=== PATIENT | female | born 1970 | race Caucasian/White ===

== ENCOUNTER → 2017-06-19 | Outpatient (REF) | payer OTHER ==
[2017-06-19 20:46] LABS: PERCENT SATURATION 81.5 % (13.2-45.0)
== END ==
LOC: M LABDRAWC 10:27
PROVIDERS: ATTEND Family Medicine
DX: R53.83 Other fatigue (principal)

== ENCOUNTER → 2017-09-11 | Outpatient (CLI) | payer BC, OTHER | LOC: M RAD 09:23 | DX: Z01.419 Encounter for gynecological examination (general) (routine) without abnormal findings (principal) | CPT/HCPCS: 77067 ==

== ENCOUNTER → 2018-02-06 | Outpatient (REF) | payer OTHER ==
[2018-02-06 11:49] LABS: VITAMIN B12 LEVEL 296 PG/ML (247-911)
[2018-02-06 12:06] LABS: ALBUMIN 3.7 GM/DL (3.2-5.2); ALBUMIN/GLOBULIN RATIO 1.19 (1.00-1.93); ALKALINE PHOSPHATASE 70 U/L (45-117); ALT/SGPT 22 U/L (12-78); ANION GAP 5 MEQ/L (8-16); AST/SGOT 19 U/L (7-37); BILIRUBIN,TOTAL 0.4 MG/DL (0.2-1.0); BLOOD UREA NITROGEN 9 MG/DL (7-18); C REACTIVE PROTEIN QUANTITATIV < 0.30 MG/DL (0.00-0.30); CALCIUM LEVEL 8.2 MG/DL (8.5-10.1); CARBON DIOXIDE LEVEL 29 MEQ/L (21-32); CHLORIDE LEVEL 108 MEQ/L (98-107); CHOLESTEROL LEVEL 181 MG/DL (<200); CHOLESTEROL RISK RATIO 3.067 (<5); CREATININE FOR GFR 0.71 MG/DL (0.55-1.30); GLOMERULAR FILTRATION RATE > 60.0 (>58); GLUCOSE, FASTING 87 MG/DL (70-100); HDL CHOLESTEROL 59 MG/DL (>40); LDL CHOLESTEROL 113.4 MG/DL (<100); NON-HDL-C 122 MG/DL; POTASSIUM SERUM 4.2 MEQ/L (3.5-5.1); SODIUM LEVEL 142 MEQ/L (136-145); TOTAL PROTEIN 6.8 GM/DL (6.4-8.2); TRIGLYCERIDES LEVEL 43 MG/DL (<150)
[2018-02-07 14:17] LABS: INSULIN LEVEL 4.4 uIU/mL (2.6-24.9)
== END ==
LOC: M SFHCCLAY 07:34
DX: E55.9 Vitamin D deficiency, unspecified (principal); E78.2 Mixed hyperlipidemia; K21.9 Gastro-esophageal reflux disease without esophagitis; D69.6 Thrombocytopenia, unspecified

== ENCOUNTER → 2018-06-04 | Outpatient (CLI) | payer BC, OTHER ==
[~2018-06-04] MED LIST: PROHANCE 279.3MG/ML 15ML VIAL (A9576) As Ordered
== END ==
LOC: M RAD 08:31
DX: R92.8 Other abnormal and inconclusive findings on diagnostic imaging of breast (principal)
CPT/HCPCS: A9576

== ENCOUNTER → 2018-09-13 | Outpatient (REF) | payer OTHER ==
[2018-09-13 16:52] LABS: FREE T3 2.5 PG/ML (2.2-4.0); FREE T4 1.01 NG/DL (0.76-1.46); THYROXINE (T4) 10.6 UG/DL (4.5-12.0)
[2018-09-14 10:38] LABS: THYROID PEROXIDASE ANTIBODY < 28.0 U/ML (<60.0)
== END ==
LOC: M SFHCCLAY 11:18
PROVIDERS: ATTEND Family Medicine
DX: R53.83 Other fatigue (principal); E07.9 Disorder of thyroid, unspecified; E55.9 Vitamin D deficiency, unspecified

== ENCOUNTER → 2019-03-14 | Outpatient (REF) | payer OTHER ==
[~2019-03-14] MED LIST changes: +B COTAB3 PO; +CURCPOW XX; +GLUT1POW XX; +MAGN500T6 PO; -PROHANCE 279.3MG/ML 15ML VIAL (A9576) As Ordered; +SERT25TA88 PO; +VITA50LO PO
[2019-03-15 12:25] LABS: ALT/SGPT 26 U/L (12-78); BILIRUBIN,TOTAL 0.4 MG/DL (0.2-1.0); BLOOD UREA NITROGEN 11 MG/DL (7-18); CALCIUM LEVEL 8.6 MG/DL (8.5-10.1); CARBON DIOXIDE LEVEL 28 MEQ/L (21-32); CHLORIDE LEVEL 105 MEQ/L (98-107); CHOLESTEROL LEVEL 197 MG/DL (<200); CHOLESTEROL RISK RATIO 3.283 (<5); GLOMERULAR FILTRATION RATE > 60.0 (>58); GLUCOSE, FASTING 81 MG/DL (70-100); HDL CHOLESTEROL 60 MG/DL (>40); LDL CHOLESTEROL 118 MG/DL (<100); NON-HDL-C 137 MG/DL; POTASSIUM SERUM 4.1 MEQ/L (3.5-5.1); SODIUM LEVEL 139 MEQ/L (136-145); TOTAL PROTEIN 7.2 GM/DL (6.4-8.2); TRIGLYCERIDES LEVEL 93 MG/DL (<150)
[2019-03-15 12:32] LABS: FOLATE 19.4 NG/ML (>5.4); VITAMIN B12 LEVEL 427 PG/ML (247-911)
== END ==
LOC: M SFHCCLAY 13:48
PROVIDERS: ATTEND Family Medicine
DX: Z13.21 Encounter for screening for nutritional disorder (principal); E78.2 Mixed hyperlipidemia; R53.83 Other fatigue

== ENCOUNTER 2020-04-11 23:01 | Emergency (ER) | payer BC, OTHER ==
[~2020-04-11 23:01] MED LIST changes: +SERT25TA21 PO; -SERT25TA88 PO; +testosterone TOP
[2020-04-11] MEDS ORDERED: ASPIRIN 325 MG TAB ONE (23:33)
[2020-04-12] MEDS ORDERED: ISOVUE-370 76% 100ML VIAL As Ordered ONE (00:42)
--- NOTE | 2020-05-15 17:11 | ECGEPIP ---
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
--- NOTE | 2020-05-15 17:13 | ECGEPIP ---
[facility] - ED Test Date: 2020-04-11 Pat Name: JOVANI KIDD Department: Room: - Gender: Female Rail Equipment Operator: adrienne : 1970 Requested By: CHRISTIANO Melton Order Number: [id number] Reading MD: Vanessa Bertrand Measurements Intervals [place] Rate: 80 P: 54 HI: 148 QRS: 42 QRSD: 85 T: 26 QT: 367 QTc: 425 Interpretive Statements SINUS RHYTHM LOW QRS VOLTAGE IN PRECORDIAL LEADS MINIMAL ST DEPRESSION BORDERLINE ECG SEE SCANNED DOWNTIME REPORT.
[2020-05-28 09:47] LABS: INR 0.88; PARTIAL THROMBOPLASTIN TIME 28.5 SECONDS (24.2-38.5); PROTHROMBIN TIME 12.1 SECONDS (12.5-14.3)
[2020-05-28 18:37] LABS: BASO % 0.2 % (0.0-1.0); EOS % 0.1 % (0.0-3.0); HEMATOCRIT 39.7 % (36.0-47.0); HEMOGLOBIN 13.5 g/dl (12.0-15.5); LYMPH # 1.7 10^3/uL (1.5-5.0); LYMPH % 21.4 % (24.0-44.0); MEAN CORPUSCULAR HEMOGLOBIN 30.3 pg (27.0-33.0); MONO # 0.8 10^3/uL (0.0-0.8); MONO % 9.3 % (0.0-5.0); NEUTROPHILS # 5.6 10^3/uL (1.5-8.5); NEUTROPHILS % 68.6 % (36.0-66.0); PLATELET COUNT, AUTOMATED 215 10^3/uL (150-450); RED BLOOD COUNT 4.46 10^6/uL (4.00-5.40); WHITE BLOOD COUNT 8.1 10^3/uL (4.0-10.0)
[2020-06-30 20:37] LABS: ALBUMIN 3.8 GM/DL (3.2-5.2); ALT/SGPT 25 U/L (12-78); BILIRUBIN,DIRECT < 0.1 MG/DL (0.0-0.2); BILIRUBIN,TOTAL 0.3 MG/DL (0.2-1.0); BLOOD UREA NITROGEN 10 MG/DL (7-18); CALCIUM LEVEL 8.9 MG/DL (8.5-10.1); CARBON DIOXIDE LEVEL 26 MEQ/L (21-32); CHLORIDE LEVEL 110 MEQ/L (98-107); CREATININE FOR GFR 0.76 MG/DL (0.55-1.30); FREE T4 0.98 NG/DL (0.76-1.46); GLOMERULAR FILTRATION RATE > 60.0 (>58); GLUCOSE, FASTING 113 MG/DL (70-100); LIPASE 160 U/L (73-393); PHOSPHORUS LEVEL 0.9 MG/DL (2.5-4.9); POTASSIUM SERUM 3.9 MEQ/L (3.5-5.1); SODIUM LEVEL 141 MEQ/L (136-145); TOTAL PROTEIN 7.3 GM/DL (6.4-8.2); TROPONIN I < 0.02 NG/ML (< 0.10)
== END 2020-04-12 03:51 | disposition left against medical advice (07) ==
LOC: M ED 23:01
DX: R07.89 Other chest pain (principal); F41.9 Anxiety disorder, unspecified; Z79.899 Other long term (current) drug therapy

== ENCOUNTER → 2020-06-11 | Outpatient (REF) | payer OTHER ==
[2020-06-11 12:30] LABS: CHOLESTEROL RISK RATIO 3.976 (<5)
== END ==
LOC: M LABDRAWC 11:23
PROVIDERS: ATTEND Internal Medicine Cardiovascular Disease
DX: R06.00 Dyspnea, unspecified (principal); Z71.3 Dietary counseling and surveillance; I49.1 Atrial premature depolarization

== ENCOUNTER → 2020-07-14 | Outpatient (CLI) | payer BC, OTHER ==
--- NOTE | 2020-07-14 09:00 | REP ---
INDICATION: CHEST PAIN/FILE ROOM. COMPARISON: Chest x-ray 04/12/2020, CT 10/28/2015 TECHNIQUE: Noncontrast CT with coronal and sagittal reconstructions. FINDINGS: The lung mederos are well inflated. No pulmonary nodule, pleural effusion, calcified pleural plaque, acute infiltrate parenchymal mass. The heart is not enlarged. There is no pericardial thickening or effusion. The aorta is without aneurysm or dissection. No pathologic sized mediastinal, hilar, axillary or supraclavicular nodes. Bone windows show sternum, manubrium, clavicles, AC joints, scapulae and humeral heads or wall intact for those portions included. Spine is unremarkable. The upper abdomen demonstrates solid organs without focal lesion the gallbladder shows no calcified stone or mass. Stomach collapse but without mass visualized small bowel loops are unremarkable. IMPRESSION: 1. Negative CT chest. No acute finding. <Electronically signed by Yunier Cordero > 07/14/20 0800
== END ==
LOC: M RAD 08:06
PROVIDERS: ATTEND Family Medicine
DX: R07.9 Chest pain, unspecified (principal)

== ENCOUNTER → 2020-09-11 | Outpatient (REF) | payer OTHER ==
[2020-09-11 16:15] LABS: BASO % 0.4 % (0.0-1.0); EOS % 0.8 % (0.0-3.0); HEMATOCRIT 40.6 % (36.0-47.0); LYMPH # 1.4 10^3/uL (1.5-5.0); LYMPH % 28.5 % (24.0-44.0); MEAN CORPUSCULAR HEMOGLOBIN 29.5 pg (27.0-33.0); MEAN CORPUSCULAR VOLUME 92.3 fl (80.0-96.0); MONO # 0.5 10^3/uL (0.0-0.8); MONO % 9.6 % (0.0-5.0); NEUTROPHILS % 60.5 % (36.0-66.0); PLATELET COUNT, AUTOMATED 185 10^3/uL (150-450); WHITE BLOOD COUNT 4.9 10^3/uL (4.0-10.0)
[2020-09-11 16:52] LABS: ALT/SGPT 17 U/L (12-78); BILIRUBIN,TOTAL 0.5 MG/DL (0.2-1.0); BLOOD UREA NITROGEN 11 MG/DL (7-18); CALCIUM LEVEL 8.8 MG/DL (8.5-10.1); CARBON DIOXIDE LEVEL 31 MEQ/L (21-32); CHLORIDE LEVEL 109 MEQ/L (98-107); CHOLESTEROL LEVEL 207 MG/DL (<200); CHOLESTEROL RISK RATIO 4.404 (<5); CREATININE FOR GFR 0.73 MG/DL (0.55-1.30); GLOMERULAR FILTRATION RATE > 60.0 (>51); GLUCOSE, FASTING 75 MG/DL (70-100); HDL CHOLESTEROL 47 MG/DL (>40); LDL CHOLESTEROL 139 MG/DL (<100); NON-HDL-C 160 MG/DL; SODIUM LEVEL 142 MEQ/L (136-145); TOTAL PROTEIN 7.1 GM/DL (6.4-8.2); TRIGLYCERIDES LEVEL 107 MG/DL (<150)
[2020-09-11 16:53] LABS: VITAMIN B12 LEVEL 646 PG/ML
[2020-09-11 16:54] LABS: FOLATE 17.9 NG/ML
[2020-09-14 14:07] LABS: VITAMIN D 1,25 DIHYDROXY 42.1 pg/mL (19.9-79.3)
== END ==
LOC: M SFHCCLAY 09:40
PROVIDERS: ATTEND Family Medicine
DX: E55.9 Vitamin D deficiency, unspecified (principal); E78.2 Mixed hyperlipidemia; E07.9 Disorder of thyroid, unspecified; Z20.822 Contact with and (suspected) exposure to COVID-19; D69.6 Thrombocytopenia, unspecified; Z13.21 Encounter for screening for nutritional disorder

== ENCOUNTER → 2020-09-18 | Outpatient (CLI) | payer SELFPAY | LOC: M LABSMTC 10:56 | PROVIDERS: ATTEND Pediatrics | DX: Z20.822 Contact with and (suspected) exposure to COVID-19 (principal) ==

== ENCOUNTER → 2021-07-12 | Outpatient (REF) | payer OTHER ==
[2021-07-12 12:30] LABS: PROTHROMBIN TIME 13.6 SECONDS (12.7-14.5)
== END ==
LOC: M LABDRAWC 11:23
PROVIDERS: ATTEND Internal Medicine Cardiovascular Disease
DX: E78.2 Mixed hyperlipidemia (principal)

== ENCOUNTER → 2021-07-19 | Outpatient (REF) | payer OTHER ==
[2021-07-19 12:34] LABS: CHOLESTEROL RISK RATIO 3.53 (<5)
== END ==
LOC: M LABDRAWC 11:05
PROVIDERS: ATTEND Internal Medicine Cardiovascular Disease
DX: E78.2 Mixed hyperlipidemia (principal); Z71.82 Exercise counseling; Z71.3 Dietary counseling and surveillance

== ENCOUNTER → 2021-09-16 | Outpatient (REF) | payer OTHER ==
[2021-09-16 16:13] LABS: BASO % 0.3 % (0.0-1.0); EOS # 0.1 10^3/uL (0.0-0.5); EOS % 1.1 % (0.0-3.0); HEMATOCRIT 38.4 % (36.0-47.0); HEMOGLOBIN 12.4 g/dl (12.0-15.5); LYMPH # 1.9 10^3/uL (1.5-5.0); LYMPH % 29.2 % (24.0-44.0); MEAN CORPUSCULAR HEMOGLOBIN 29.7 pg (27.0-33.0); MEAN CORPUSCULAR HGB CONC 32.3 g/dl (32.0-36.5); MEAN CORPUSCULAR VOLUME 91.9 fl (80.0-96.0); MONO # 0.6 10^3/uL (0.0-0.8); NEUTROPHILS # 3.8 10^3/uL (1.5-8.5); NEUTROPHILS % 58.9 % (36.0-66.0); PLATELET COUNT, AUTOMATED 223 10^3/uL (150-450); RED BLOOD COUNT 4.18 10^6/uL (4.00-5.40); WHITE BLOOD COUNT 6.4 10^3/uL (4.0-10.0)
[2021-09-16 16:38] LABS: ALBUMIN 3.6 GM/DL (3.2-5.2); ALT/SGPT 24 U/L (12-78); BILIRUBIN,TOTAL 0.2 MG/DL (0.2-1.0); BLOOD UREA NITROGEN 9 MG/DL (7-18); CALCIUM LEVEL 9.1 MG/DL (8.5-10.1); CARBON DIOXIDE LEVEL 30 MEQ/L (21-32); CHLORIDE LEVEL 106 MEQ/L (98-107); CREATININE FOR GFR 0.59 MG/DL (0.55-1.30); FOLATE 11.8 NG/ML (>5.4); FREE T4 0.95 NG/DL (0.76-1.46); GLOMERULAR FILTRATION RATE > 60.0 (>51); GLUCOSE, FASTING 77 MG/DL (70-100); POTASSIUM SERUM 4.1 MEQ/L (3.5-5.1); SODIUM LEVEL 139 MEQ/L (136-145); TOTAL PROTEIN 6.9 GM/DL (6.4-8.2); TOTAL T3 116.2 NG/DL (60.0-181.0)
[2021-09-17 09:42] LABS: VITAMIN B12 LEVEL 1429 PG/ML (247-911)
== END ==
LOC: M SFHCCLAY 09:53
PROVIDERS: ATTEND Family Medicine
DX: E78.2 Mixed hyperlipidemia (principal); E07.9 Disorder of thyroid, unspecified; D69.6 Thrombocytopenia, unspecified; E55.9 Vitamin D deficiency, unspecified

== ENCOUNTER → 2022-02-07 | Outpatient (REF) | payer OTHER ==
[2022-02-07 16:25] LABS: BASO % 0.4 % (0.0-1.0); EOS % 0.8 % (0.0-3.0); HEMATOCRIT 40.5 % (36.0-47.0); HEMOGLOBIN 13.2 g/dl (12.0-15.5); LYMPH # 1.7 10^3/uL (1.5-5.0); LYMPH % 32.4 % (24.0-44.0); MEAN CORPUSCULAR HGB CONC 32.6 g/dl (32.0-36.5); MONO # 0.5 10^3/uL (0.0-0.8); MONO % 9.6 % (2.0-8.0); NEUTROPHILS # 2.9 10^3/uL (1.5-8.5); NEUTROPHILS % 56.6 % (36.0-66.0); PLATELET COUNT, AUTOMATED 180 10^3/uL (150-450); WHITE BLOOD COUNT 5.1 10^3/uL (4.0-10.0)
== END ==
LOC: M SFHCCLAY 10:07
PROVIDERS: ATTEND Physician Assistant
DX: R42 Dizziness and giddiness (principal)

== ENCOUNTER → 2022-07-26 | Outpatient (REF) | payer OTHER ==
[2022-07-26 17:31] LABS: BASO # 0.1 10^3/uL (0.0-0.2); BASO % 0.8 % (0.0-1.0); EOS # 0.1 10^3/uL (0.0-0.5); EOS % 0.8 % (0.0-3.0); HEMATOCRIT 35.8 % (36.0-47.0); HEMOGLOBIN 11.5 g/dl (12.0-15.5); LYMPH # 0.8 10^3/uL (1.5-5.0); LYMPH % 13.3 % (24.0-44.0); MEAN CORPUSCULAR HEMOGLOBIN 29.7 pg (27.0-33.0); MEAN CORPUSCULAR HGB CONC 32.1 g/dl (32.0-36.5); MEAN CORPUSCULAR VOLUME 92.5 fl (80.0-96.0); MONO # 0.8 10^3/uL (0.0-0.8); MONO % 13.3 % (2.0-8.0); NEUTROPHILS # 4.2 10^3/uL (1.5-8.5); NEUTROPHILS % 67.3 % (36.0-66.0); PLATELET COUNT, AUTOMATED 165 10^3/uL (150-450); RED BLOOD COUNT 3.87 10^6/uL (4.00-5.40); WHITE BLOOD COUNT 6.2 10^3/uL (4.0-10.0)
== END ==
LOC: M LABDRAWC 16:40
PROVIDERS: ATTEND Psychiatry & Neurology Neurology
DX: C71.3 Malignant neoplasm of parietal lobe (principal)

== ENCOUNTER → 2022-08-31 | Outpatient (REF) | payer OTHER ==
[2022-08-31 12:17] LABS: BASO # 0.1 10^3/uL (0.0-0.2); BASO % 1.2 % (0.0-1.0); EOS % 18.7 % (0.0-3.0); HEMATOCRIT 41.1 % (36.0-47.0); HEMOGLOBIN 13.2 g/dl (12.0-15.5); LYMPH # 0.9 10^3/uL (1.5-5.0); LYMPH % 17.8 % (24.0-44.0); MEAN CORPUSCULAR HEMOGLOBIN 28.6 pg (27.0-33.0); MEAN CORPUSCULAR HGB CONC 32.1 g/dl (32.0-36.5); MEAN CORPUSCULAR VOLUME 89.2 fl (80.0-96.0); MONO # 0.6 10^3/uL (0.0-0.8); MONO % 12.6 % (2.0-8.0); NEUTROPHILS # 2.5 10^3/uL (1.5-8.5); NEUTROPHILS % 48.3 % (36.0-66.0); PLATELET COUNT, AUTOMATED 223 10^3/uL (150-450); RED BLOOD COUNT 4.61 10^6/uL (4.00-5.40); WHITE BLOOD COUNT 5.1 10^3/uL (4.0-10.0)
[2022-08-31 12:50] LABS: ALBUMIN 3.1 G/DL (3.2-5.2); ALKALINE PHOSPHATASE 66 U/L (46-116); ALT/SGPT 71 U/L (7.0-40); AST/SGOT 60 U/L (<34); BILIRUBIN,TOTAL 0.5 MG/DL (0.3-1.2); BLOOD UREA NITROGEN < 5 MG/DL (9-23); CALCIUM LEVEL 8.8 MG/DL (8.5-10.1); CARBON DIOXIDE LEVEL 27 MMOL/L (20-31); CHLORIDE LEVEL 105 MMOL/L (98-107); GLOMERULAR FILTRATION RATE > 60.0 (>51); GLUCOSE, FASTING 88 MG/DL (60-100); POTASSIUM SERUM 4.3 MMOL/L (3.5-5.1); SODIUM LEVEL 140 MMOL/L (136-145); TOTAL PROTEIN 6.1 G/DL (5.7-8.2)
== END ==
LOC: M LABDRAWC 11:22
DX: C71.9 Malignant neoplasm of brain, unspecified (principal)

== ENCOUNTER → 2022-09-06 | Outpatient (REF) | payer OTHER ==
[2022-09-06 17:35] LABS: BASO % 0.6 % (0.0-1.0); EOS # 0.4 10^3/uL (0.0-0.5); EOS % 8.8 % (0.0-3.0); HEMATOCRIT 40.8 % (36.0-47.0); HEMOGLOBIN 13.3 g/dl (12.0-15.5); LYMPH % 19.2 % (24.0-44.0); MEAN CORPUSCULAR HEMOGLOBIN 28.9 pg (27.0-33.0); MEAN CORPUSCULAR HGB CONC 32.6 g/dl (32.0-36.5); MEAN CORPUSCULAR VOLUME 88.5 fl (80.0-96.0); MONO # 0.8 10^3/uL (0.0-0.8); MONO % 16.2 % (2.0-8.0); NEUTROPHILS # 2.7 10^3/uL (1.5-8.5); NEUTROPHILS % 54.8 % (36.0-66.0); PLATELET COUNT, AUTOMATED 201 10^3/uL (150-450); RED BLOOD COUNT 4.61 10^6/uL (4.00-5.40)
[2022-09-06 17:52] LABS: ALBUMIN 3.3 G/DL (3.2-5.2); ALKALINE PHOSPHATASE 65 U/L (46-116); ALT/SGPT 67 U/L (7.0-40); AST/SGOT 51 U/L (<34); BILIRUBIN,TOTAL 0.4 MG/DL (0.3-1.2); BLOOD UREA NITROGEN 7 MG/DL (9-23); CALCIUM LEVEL 9.1 MG/DL (8.5-10.1); CARBON DIOXIDE LEVEL 24 MMOL/L (20-31); CHLORIDE LEVEL 105 MMOL/L (98-107); CREATININE FOR GFR 0.69 MG/DL (0.55-1.30); GLOMERULAR FILTRATION RATE > 60.0 (>51); GLUCOSE, FASTING 88 MG/DL (60-100); POTASSIUM SERUM 4.6 MMOL/L (3.5-5.1); SODIUM LEVEL 141 MMOL/L (136-145); TOTAL PROTEIN 6.3 G/DL (5.7-8.2)
== END ==
LOC: M LABDRAWC 16:58
DX: C71.9 Malignant neoplasm of brain, unspecified (principal)

== ENCOUNTER → 2022-09-21 | Outpatient (REF) | payer OTHER ==
[2022-09-21 17:37] LABS: BASO % 0.8 % (0.0-1.0); EOS # 0.3 10^3/uL (0.0-0.5); EOS % 4.9 % (0.0-3.0); HEMATOCRIT 39.4 % (36.0-47.0); HEMOGLOBIN 13.1 g/dl (12.0-15.5); LYMPH # 1.3 10^3/uL (1.5-5.0); LYMPH % 24.9 % (24.0-44.0); MEAN CORPUSCULAR HEMOGLOBIN 29.4 pg (27.0-33.0); MEAN CORPUSCULAR HGB CONC 33.2 g/dl (32.0-36.5); MEAN CORPUSCULAR VOLUME 88.5 fl (80.0-96.0); MONO # 0.8 10^3/uL (0.0-0.8); MONO % 14.7 % (2.0-8.0); NEUTROPHILS # 2.9 10^3/uL (1.5-8.5); NEUTROPHILS % 54.1 % (36.0-66.0); PLATELET COUNT, AUTOMATED 176 10^3/uL (150-450); RED BLOOD COUNT 4.45 10^6/uL (4.00-5.40); WHITE BLOOD COUNT 5.3 10^3/uL (4.0-10.0)
[2022-09-21 17:54] LABS: ALBUMIN 3.4 G/DL (3.2-5.2); ALKALINE PHOSPHATASE 72 U/L (46-116); ALT/SGPT 49 U/L (7.0-40); AST/SGOT 40 U/L (<34); BILIRUBIN,TOTAL 0.4 MG/DL (0.3-1.2); BLOOD UREA NITROGEN 10 MG/DL (9-23); CALCIUM LEVEL 8.8 MG/DL (8.5-10.1); CARBON DIOXIDE LEVEL 26 MMOL/L (20-31); CHLORIDE LEVEL 104 MMOL/L (98-107); CREATININE FOR GFR 0.63 MG/DL (0.55-1.30); GLOMERULAR FILTRATION RATE > 60.0 (>51); GLUCOSE, FASTING 92 MG/DL (60-100); SODIUM LEVEL 138 MMOL/L (136-145); TOTAL PROTEIN 6.5 G/DL (5.7-8.2)
== END ==
LOC: M LABDRAWC 16:39
DX: C71.9 Malignant neoplasm of brain, unspecified (principal)

== ENCOUNTER → 2022-10-06 | Outpatient (REF) | payer OTHER ==
[2022-10-06 11:53] LABS: BASO % 0.5 % (0.0-1.0); EOS # 0.1 10^3/uL (0.0-0.5); EOS % 1.3 % (0.0-3.0); HEMATOCRIT 40.1 % (36.0-47.0); HEMOGLOBIN 13.1 g/dl (12.0-15.5); LYMPH # 1.3 10^3/uL (1.5-5.0); LYMPH % 22.4 % (24.0-44.0); MEAN CORPUSCULAR HGB CONC 32.7 g/dl (32.0-36.5); MEAN CORPUSCULAR VOLUME 88.9 fl (80.0-96.0); MONO # 0.6 10^3/uL (0.0-0.8); MONO % 10.6 % (2.0-8.0); NEUTROPHILS # 3.8 10^3/uL (1.5-8.5); NEUTROPHILS % 64.7 % (36.0-66.0); PLATELET COUNT, AUTOMATED 251 10^3/uL (150-450); RED BLOOD COUNT 4.51 10^6/uL (4.00-5.40); WHITE BLOOD COUNT 5.9 10^3/uL (4.0-10.0)
[2022-10-06 12:27] LABS: ALBUMIN 3.4 G/DL (3.2-5.2); ALKALINE PHOSPHATASE 80 U/L (46-116); ALT/SGPT 54 U/L (7.0-40); AST/SGOT 36 U/L (<34); BILIRUBIN,TOTAL 0.4 MG/DL (0.3-1.2); BLOOD UREA NITROGEN 9 MG/DL (9-23); CALCIUM LEVEL 8.8 MG/DL (8.5-10.1); CARBON DIOXIDE LEVEL 25 MMOL/L (20-31); CHLORIDE LEVEL 106 MMOL/L (98-107); CREATININE FOR GFR 0.56 MG/DL (0.55-1.30); GLOMERULAR FILTRATION RATE > 60.0 (>51); GLUCOSE, FASTING 113 MG/DL (60-100); POTASSIUM SERUM 3.8 MMOL/L (3.5-5.1); SODIUM LEVEL 140 MMOL/L (136-145); TOTAL PROTEIN 6.6 G/DL (5.7-8.2)
== END ==
LOC: M LABDRAWC 11:15
PROVIDERS: ATTEND Internal Medicine Hospice and Palliative Medicine
DX: C71.9 Malignant neoplasm of brain, unspecified (principal)

== ENCOUNTER → 2022-10-18 | Outpatient (REF) | payer OTHER ==
[2022-10-18 17:42] LABS: BASO % 0.2 % (0.0-1.0); EOS % 0.4 % (0.0-3.0); HEMATOCRIT 37.5 % (36.0-47.0); HEMOGLOBIN 12.1 g/dl (12.0-15.5); LYMPH % 11.8 % (24.0-44.0); MEAN CORPUSCULAR HEMOGLOBIN 29.7 pg (27.0-33.0); MEAN CORPUSCULAR HGB CONC 32.3 g/dl (32.0-36.5); MEAN CORPUSCULAR VOLUME 91.9 fl (80.0-96.0); MONO # 0.5 10^3/uL (0.0-0.8); MONO % 6.5 % (2.0-8.0); NEUTROPHILS # 6.5 10^3/uL (1.5-8.5); NEUTROPHILS % 79.9 % (36.0-66.0); PLATELET COUNT, AUTOMATED 185 10^3/uL (150-450); RED BLOOD COUNT 4.08 10^6/uL (4.00-5.40); WHITE BLOOD COUNT 8.2 10^3/uL (4.0-10.0)
[2022-10-18 18:11] LABS: ALBUMIN 3.1 G/DL (3.2-5.2); ALKALINE PHOSPHATASE 71 U/L (46-116); ALT/SGPT 52 U/L (7.0-40); AST/SGOT 34 U/L (<34); BILIRUBIN,TOTAL 0.3 MG/DL (0.3-1.2); BLOOD UREA NITROGEN 12 MG/DL (9-23); CALCIUM LEVEL 8.7 MG/DL (8.5-10.1); CARBON DIOXIDE LEVEL 26 MMOL/L (20-31); CHLORIDE LEVEL 103 MMOL/L (98-107); CREATININE FOR GFR 0.48 MG/DL (0.55-1.30); GLOMERULAR FILTRATION RATE > 60.0 (>51); GLUCOSE, FASTING 123 MG/DL (60-100); POTASSIUM SERUM 4.3 MMOL/L (3.5-5.1); SODIUM LEVEL 137 MMOL/L (136-145); TOTAL PROTEIN 6.1 G/DL (5.7-8.2)
== END ==
LOC: M LABDRAWC 16:52
PROVIDERS: ATTEND Internal Medicine Hospice and Palliative Medicine
DX: C71.9 Malignant neoplasm of brain, unspecified (principal)

== ENCOUNTER 2022-10-23 07:37 | Observation (INO) | payer BC, OTHER ==
[~2022-10-23] VITALS: Ht 167.6 cm; Wt 84.5 kg
[2022-10-23] MEDS ORDERED: BACTDSTA PO (08:37)
[2022-10-23] MEDS ORDERED: CLON2TAB14 SL (08:37)
[2022-10-23] MEDS ORDERED: FAMO20TA5 PO (08:37)
[2022-10-23] MEDS ORDERED: [UNRECOGNIZED DRUG - CODE] PO (08:37)
[2022-10-23] MEDS ORDERED: TEMO20CA21 PO (08:37)
[2022-10-23] MEDS ORDERED: DEXA1TA PO (08:37)
[2022-10-23] MEDS ORDERED: LEVE750T5 PO (08:37)
[2022-10-23 08:40] LABS: BASO % 0.4 % (0.0-1.0); EOS # 0.1 10^3/uL (0.0-0.5); HEMATOCRIT 40.5 % (36.0-47.0); LYMPH # 1.6 10^3/uL (1.5-5.0); LYMPH % 22.7 % (24.0-44.0); MEAN CORPUSCULAR HEMOGLOBIN 29.1 pg (27.0-33.0); MEAN CORPUSCULAR HGB CONC 32.1 g/dl (32.0-36.5); MEAN CORPUSCULAR VOLUME 90.6 fl (80.0-96.0); MONO # 0.9 10^3/uL (0.0-0.8); MONO % 12.4 % (2.0-8.0); NEUTROPHILS # 4.3 10^3/uL (1.5-8.5); NEUTROPHILS % 61.6 % (36.0-66.0); PLATELET COUNT, AUTOMATED 195 10^3/uL (150-450); RED BLOOD COUNT 4.47 10^6/uL (4.00-5.40)
[2022-10-23 09:36] LABS: ALBUMIN 3.1 G/DL (3.2-5.2); ALKALINE PHOSPHATASE 79 U/L (46-116); ALT/SGPT 57 U/L (7.0-40); AST/SGOT 35 U/L (<34); BILIRUBIN,DIRECT 0.1 MG/DL (<0.4); BILIRUBIN,TOTAL 0.5 MG/DL (0.3-1.2); BLOOD UREA NITROGEN 9 MG/DL (9-23); CALCIUM LEVEL 9.3 MG/DL (8.5-10.1); CARBON DIOXIDE LEVEL 27 MMOL/L (20-31); CHLORIDE LEVEL 104 MMOL/L (98-107); CREATININE FOR GFR 0.52 MG/DL (0.55-1.30); GLOMERULAR FILTRATION RATE > 60.0 (>51); GLUCOSE, FASTING 88 MG/DL (60-100); SODIUM LEVEL 139 MMOL/L (136-145); TOTAL PROTEIN 6.5 G/DL (5.7-8.2)
[2022-10-23] MEDS ORDERED: LACOSAMIDE 50 MG TAB (VIMPAT) PO ONE ×3 (10:00→22:00)
[2022-10-23 11:08] LABS: RSV AMPLIFICATION NEGATIVE (NEGATIVE)
[2022-10-23] MEDS ORDERED: PROHANCE 279.3MG/ML 15ML VIAL As Ordered ONE (11:31)
[2022-10-23] MEDS ORDERED: PROHANCE 279.3MG/ML 5ML VIAL As Ordered ONE (11:31)
[2022-10-23] MEDS ORDERED: ELIQ5TAB PO (15:49)
[2022-10-23] MEDS ORDERED: FAMOTIDINE 20 MG TAB PO PRN (15:55)
[2022-10-23] MEDS ORDERED: ACETAMINOPHEN TAB 650MG DOSE (2X325MG) PO PRN (15:55)
[2022-10-23] MEDS ORDERED: MOM 30ML SUSPENSION UDC PO PRN (15:55)
[2022-10-23] MEDS ORDERED: HOME MED LIST COMPLETE! XX SCH (15:55)
[2022-10-23] MEDS ORDERED: clonazePAM 1 MG TAB PO PRN (16:00)
[2022-10-23 18:30] VITALS: BP 135/67
[2022-10-23 20:00] VITALS: BP 128/64
[2022-10-23] MEDS: APIXABAN 5 MG TAB (ELIQUIS) PO SCH (21:21)
[2022-10-23] MEDS: levETIRAcetam 250MG TABLET (KEPPRA) PO SCH (21:22)
[2022-10-23] MEDS ORDERED: LACOSAMIDE 50 MG TAB (VIMPAT) PO SCH (22:00)
[2022-10-24 04:00] VITALS: BP 126/72
[2022-10-24 05:39] LABS: HEMATOCRIT 39.5 % (36.0-47.0); HEMOGLOBIN 12.8 g/dl (12.0-15.5); MEAN CORPUSCULAR HEMOGLOBIN 29.3 pg (27.0-33.0); MEAN CORPUSCULAR HGB CONC 32.4 g/dl (32.0-36.5); MEAN CORPUSCULAR VOLUME 90.4 fl (80.0-96.0); PLATELET COUNT, AUTOMATED 219 10^3/uL (150-450); RED BLOOD COUNT 4.37 10^6/uL (4.00-5.40); WHITE BLOOD COUNT 8.8 10^3/uL (4.0-10.0)
[2022-10-24 06:06] LABS: ALBUMIN 3.3 G/DL (3.2-5.2); ALKALINE PHOSPHATASE 77 U/L (46-116); ALT/SGPT 61 U/L (7.0-40); AST/SGOT 30 U/L (<34); BILIRUBIN,TOTAL 0.4 MG/DL (0.3-1.2); BLOOD UREA NITROGEN 16 MG/DL (9-23); CALCIUM LEVEL 9.2 MG/DL (8.5-10.1); CARBON DIOXIDE LEVEL 22 MMOL/L (20-31); CHLORIDE LEVEL 106 MMOL/L (98-107); CREATININE FOR GFR 0.42 MG/DL (0.55-1.30); GLOMERULAR FILTRATION RATE > 60.0 (>51); GLUCOSE, FASTING 120 MG/DL (60-100); POTASSIUM SERUM 4.1 MMOL/L (3.5-5.1); SODIUM LEVEL 139 MMOL/L (136-145); TOTAL PROTEIN 6.5 G/DL (5.7-8.2)
[2022-10-24] MEDS ORDERED: VIMP50TA3 PO (08:15)
[2022-10-24] MEDS ORDERED: DEXA4TA PO (08:15)
[2022-10-24 08:50] VITALS: BP 117/69
[2022-10-24] MEDS ORDERED: BACTRIM 160MG/800MG DS TAB PO SCH (09:00)
[2022-10-24] MEDS: levETIRAcetam 250MG TABLET (KEPPRA) PO SCH (09:56)
[2022-10-24] MEDS: APIXABAN 5 MG TAB (ELIQUIS) PO SCH (09:56)
[2022-10-24] MEDS ORDERED: LACOSAMIDE 50 MG TAB (VIMPAT) PO ONE (10:00)
[2022-10-24] MEDS ORDERED: LACOSAMIDE 50 MG TAB (VIMPAT) PO SCH (21:00)
== END 2022-10-24 10:35 | disposition home or self-care (01) ==
LOC: M ED 09:06 → M ED INP 15:54 → M PCU 18:28
PROVIDERS: ADMIT Internal Medicine; ATTEND Internal Medicine
DX: C71.9 Malignant neoplasm of brain, unspecified (principal); G40.89 Other seizures; G93.6 Cerebral edema; E55.9 Vitamin D deficiency, unspecified; F41.9 Anxiety disorder, unspecified; Z79.899 Other long term (current) drug therapy; Z79.01 Long term (current) use of anticoagulants; Z88.8 Allergy status to other drugs, medicaments and biological substances; Z86.711 Personal history of pulmonary embolism
CPT/HCPCS: 36415; 70450; 70553; 80048; 80053; 80076; 80180; 85025; 85027; 87631; 93041; 99285; A9576

== ENCOUNTER 2022-11-06 12:31 | Emergency (ER) | payer BC, OTHER ==
[~2022-11-06] VITALS: Ht 167.6 cm; Wt 72.6 kg
[~2022-11-06 12:31] MED LIST changes: +BACTDSTA PO; +CLON2TAB14 SL; +DEXA1TA PO; +DEXA4TA PO; +ELIQ5TAB PO; +FAMO20TA5 PO; +LEVE750T5 PO; +TEMO20CA21 PO; +VIMP50TA3 PO; +[UNRECOGNIZED DRUG - CODE] PO
[2022-11-06] MEDS ORDERED: SERT25TA21 PO (14:12)
[2022-11-06] MEDS ORDERED: CLOB10TA15 PO (14:12)
[2022-11-06] MEDS ORDERED: LEVE500T5 PO (14:12)
[2022-11-06] MEDS ORDERED: DEXA1TA PO (14:18)
[2022-11-06] MEDS ORDERED: HOME MED LIST COMPLETE! XX SCH (14:20)
[2022-11-06 15:14] LABS: HEMOGLOBIN 14.3 g/dl (12.0-15.5); MEAN CORPUSCULAR HEMOGLOBIN 29.5 pg (27.0-33.0); MEAN CORPUSCULAR HGB CONC 32.5 g/dl (32.0-36.5); MEAN CORPUSCULAR VOLUME 90.7 fl (80.0-96.0); PLATELET COUNT, AUTOMATED 217 10^3/uL (150-450); RED BLOOD COUNT 4.85 10^6/uL (4.00-5.40); WHITE BLOOD COUNT 8.5 10^3/uL (4.0-10.0)
[2022-11-06 15:34] LABS: ETHYL ALCOHOL (ETHANOL) < 0.003 % (0.000-0.010)
[2022-11-06 15:36] LABS: ACETAMINOPHEN LEVEL < 2.0 UG/ML (10.0-20.0); ALBUMIN 3.4 G/DL (3.2-5.2); ALKALINE PHOSPHATASE 76 U/L (46-116); ALT/SGPT 33 U/L (7.0-40); AST/SGOT 20 U/L (<34); BILIRUBIN,DIRECT 0.1 MG/DL (<0.4); BILIRUBIN,TOTAL 0.5 MG/DL (0.3-1.2); BLOOD UREA NITROGEN 14 MG/DL (9-23); CALCIUM LEVEL 9.2 MG/DL (8.5-10.1); CARBON DIOXIDE LEVEL 28 MMOL/L (20-31); CHLORIDE LEVEL 104 MMOL/L (98-107); CREATININE FOR GFR 0.52 MG/DL (0.55-1.30); GLOMERULAR FILTRATION RATE > 60.0 (>51); GLUCOSE, FASTING 97 MG/DL (60-100); POTASSIUM SERUM 4.4 MMOL/L (3.5-5.1); SALICYLATE LEVEL < 3.0 MG/DL (<30); SODIUM LEVEL 140 MMOL/L (136-145); TOTAL PROTEIN 6.8 G/DL (5.7-8.2)
[2022-11-06 15:39] LABS: THYROID STIMULATING HORMONE 0.998 uIU/ML (0.55-4.78)
[2022-11-06 15:40] LABS: HCG, SERUM QUALITATIVE NEGATIVE (NEGATIVE)
[2022-11-06 18:26] LABS: AMPHETAMINES LEVEL URINE NEGATIVE (NEGATIVE); BARBITURATES URINE NEGATIVE (NEGATIVE); BENZODIAZEPINES URINE NEGATIVE (NEGATIVE); CANNABINOIDS URINE NEGATIVE (NEGATIVE); COCAINE METABOLITE URINE NEGATIVE (NEGATIVE); METHADONE URINE NEGATIVE (NEGATIVE); OPIATES URINE NEGATIVE (NEGATIVE); PHENCYCLIDINE URINE NEGATIVE (NEGATIVE)
[2022-11-06] MEDS ORDERED: PILL CUTTER 1 EACH XX PRN (21:20)
[2022-11-06] MEDS: APIXABAN 5 MG TAB (ELIQUIS) PO SCH (21:43)
[2022-11-06] MEDS: levETIRAcetam 250MG TABLET (KEPPRA) PO SCH (21:43)
[2022-11-06] MEDS: SERTRALINE HCL 50 MG TAB PO SCH (21:43)
[2022-11-07] MEDS: APIXABAN 5 MG TAB (ELIQUIS) PO SCH (08:56)
[2022-11-07] MEDS: levETIRAcetam 250MG TABLET (KEPPRA) PO SCH (08:56)
[2022-11-07] MEDS ORDERED: BACTRIM 160MG/800MG DS TAB PO SCH (09:00)
[2022-11-07] MEDS: SERTRALINE HCL 50 MG TAB PO SCH (16:28)
[2022-11-07 19:48] VITALS: BP 137/74
== END 2022-11-07 20:21 | disposition home or self-care (01) ==
LOC: M ED 12:31
DX: R45.851 Suicidal ideations (principal); C71.9 Malignant neoplasm of brain, unspecified; F32.A Depression, unspecified; F41.9 Anxiety disorder, unspecified; Z87.891 Personal history of nicotine dependence; Z88.6 Allergy status to analgesic agent; Z79.01 Long term (current) use of anticoagulants; Z79.810 Long term (current) use of selective estrogen receptor modulators (SERMs); Z79.899 Other long term (current) drug therapy

== ENCOUNTER 2022-11-10 08:02 | Inpatient (IN) | payer BC, OTHER ==
[~2022-11-10] VITALS: Ht 167.6 cm; Wt 86.4 kg
[~2022-11-10 08:02] MED LIST changes: +CLOB10TA15 PO; +LEVE500T5 PO
[2022-11-10] MEDS ORDERED: LORazepam 2 MG/ML 1ML VIAL IV STA (09:42)
[2022-11-10] MEDS ORDERED: levETIRAcetam INJection 1,000 MG in D5W 100 ML IV ONE (09:45)
[2022-11-10 10:11] LABS: BASO % 0.4 % (0.0-1.0); EOS % 0.4 % (0.0-3.0); HEMOGLOBIN 14.1 g/dl (12.0-15.5); LYMPH # 1.5 10^3/uL (1.5-5.0); LYMPH % 18.6 % (24.0-44.0); MEAN CORPUSCULAR HEMOGLOBIN 29.9 pg (27.0-33.0); MEAN CORPUSCULAR HGB CONC 32.8 g/dl (32.0-36.5); MEAN CORPUSCULAR VOLUME 91.3 fl (80.0-96.0); MONO # 0.8 10^3/uL (0.0-0.8); MONO % 9.9 % (2.0-8.0); NEUTROPHILS # 5.8 10^3/uL (1.5-8.5); NEUTROPHILS % 69.9 % (36.0-66.0); PLATELET COUNT, AUTOMATED 209 10^3/uL (150-450); RED BLOOD COUNT 4.71 10^6/uL (4.00-5.40); WHITE BLOOD COUNT 8.3 10^3/uL (4.0-10.0)
[2022-11-10] MEDS ORDERED: CLON0.12 SL (10:11)
[2022-11-10] MEDS ORDERED: HOME MED LIST COMPLETE! XX SCH (10:15)
[2022-11-10 10:27] LABS: INR 0.98; PROTHROMBIN TIME 13.2 SECONDS (12.5-14.5)
[2022-11-10 10:28] LABS: PARTIAL THROMBOPLASTIN TIME 24.6 SECONDS (24.8-34.2)
[2022-11-10 10:30] LABS: ETHYL ALCOHOL (ETHANOL) < 0.003 % (0.000-0.010)
[2022-11-10 10:32] LABS: ACETAMINOPHEN LEVEL < 2.0 UG/ML (10.0-20.0); ALBUMIN 3.4 G/DL (3.2-5.2); ALKALINE PHOSPHATASE 76 U/L (46-116); ALT/SGPT 37 U/L (7.0-40); AST/SGOT 22 U/L (<34); BILIRUBIN,DIRECT 0.2 MG/DL (<0.4); BILIRUBIN,TOTAL 0.6 MG/DL (0.3-1.2); CK-MB VALUE MASS < 1.0 NG/ML (<3.6); SALICYLATE LEVEL < 3.0 MG/DL (<30); TOTAL PROTEIN 6.7 G/DL (5.7-8.2)
[2022-11-10 10:33] LABS: BLOOD UREA NITROGEN 11 MG/DL (9-23); CALCIUM LEVEL 8.7 MG/DL (8.5-10.1); CARBON DIOXIDE LEVEL 28 MMOL/L (20-31); CHLORIDE LEVEL 104 MMOL/L (98-107); CREATININE FOR GFR 0.66 MG/DL (0.55-1.30); GLOMERULAR FILTRATION RATE > 60.0 (>51); GLUCOSE, FASTING 91 MG/DL (60-100); SODIUM LEVEL 141 MMOL/L (136-145)
[2022-11-10 10:35] LABS: THYROID STIMULATING HORMONE 1.442 uIU/ML (0.55-4.78)
[2022-11-10 10:39] LABS: CPK CREATINE PHOSPHOKINASE 33 U/L (34-145); MB/CK RELATIVE INDEX 3.03 (< OR =4)
[2022-11-10 11:20] LABS: RSV AMPLIFICATION NEGATIVE (NEGATIVE)
[2022-11-10] MEDS ORDERED: BACTRIM 160MG/800MG DS TAB PO SCH (18:30)
[2022-11-10] MEDS ORDERED: LORazepam 1 MG TAB PO PRN (18:35)
[2022-11-10 20:22] LABS: METHADONE URINE NEGATIVE (NEGATIVE); OPIATES URINE NEGATIVE (NEGATIVE); PHENCYCLIDINE URINE NEGATIVE (NEGATIVE)
[2022-11-10 20:23] LABS: AMPHETAMINES LEVEL URINE NEGATIVE (NEGATIVE); BARBITURATES URINE NEGATIVE (NEGATIVE); CANNABINOIDS URINE NEGATIVE (NEGATIVE); COCAINE METABOLITE URINE NEGATIVE (NEGATIVE)
[2022-11-10 20:24] LABS: BENZODIAZEPINES URINE POSITIVE (NEGATIVE)
[2022-11-10] MEDS: levETIRAcetam 250MG TABLET (KEPPRA) PO SCH (21:16)
[2022-11-10] MEDS: APIXABAN 5 MG TAB (ELIQUIS) PO SCH (21:16)
[2022-11-10] MEDS ORDERED: PILL CUTTER 1 EACH XX PRN (22:00)
[2022-11-11] MEDS ORDERED: BACTRIM 160MG/800MG DS TAB PO SCH (09:00)
[2022-11-11] MEDS: levETIRAcetam 250MG TABLET (KEPPRA) PO SCH ×2 (09:29→20:06)
[2022-11-11] MEDS: APIXABAN 5 MG TAB (ELIQUIS) PO SCH ×2 (09:29→20:06)
[2022-11-11] MEDS ORDERED: FAMOTIDINE 20 MG TAB PO PRN (15:30)
[2022-11-11] MEDS: SERTRALINE 100 MG TAB PO SCH (15:51)
[2022-11-11 16:51] VITALS: BP 131/67
[2022-11-11] MEDS ORDERED: clonazePAM 0.5 MG TAB PO PRN (18:10)
[2022-11-11] MEDS ORDERED: clonazePAM 0.5 MG TAB PO SCH (21:00)
[2022-11-12 06:45] VITALS: BP 119/70
[2022-11-12] MEDS: APIXABAN 5 MG TAB (ELIQUIS) PO SCH ×2 (08:07→20:04)
[2022-11-12] MEDS: levETIRAcetam 250MG TABLET (KEPPRA) PO SCH ×2 (08:09→20:03)
[2022-11-12] MEDS ORDERED: clonazePAM 0.5 MG TAB PO PRN (08:25)
[2022-11-12] MEDS: ARIPiprazole 2 MG TAB PO SCH (11:31)
[2022-11-12] MEDS: SERTRALINE 100 MG TAB PO SCH (14:40)
[2022-11-13 06:01] VITALS: BP 144/71
[2022-11-13] MEDS: APIXABAN 5 MG TAB (ELIQUIS) PO SCH ×2 (08:18→20:05)
[2022-11-13] MEDS: ARIPiprazole 2 MG TAB PO SCH (08:19)
[2022-11-13] MEDS: levETIRAcetam 250MG TABLET (KEPPRA) PO SCH ×2 (08:19→20:05)
[2022-11-13] MEDS: SERTRALINE 100 MG TAB PO SCH (13:58)
[2022-11-13 16:09] VITALS: BP 150/79
[2022-11-14 06:23] VITALS: BP 124/82
[2022-11-14] MEDS: ARIPiprazole 2 MG TAB PO SCH (08:04)
[2022-11-14] MEDS: BACTRIM 160MG/800MG DS TAB PO SCH (08:04)
[2022-11-14] MEDS: levETIRAcetam 250MG TABLET (KEPPRA) PO SCH ×2 (08:04→20:02)
[2022-11-14] MEDS: APIXABAN 5 MG TAB (ELIQUIS) PO SCH ×2 (08:04→20:02)
[2022-11-14] MEDS: SERTRALINE 100 MG TAB PO SCH (13:38)
[2022-11-14 16:18] VITALS: BP 144/73
[2022-11-15 06:48] VITALS: BP 114/56
[2022-11-15] MEDS: APIXABAN 5 MG TAB (ELIQUIS) PO SCH ×2 (07:59→20:17)
[2022-11-15] MEDS: ARIPiprazole 2 MG TAB PO SCH (08:00)
[2022-11-15] MEDS: levETIRAcetam 250MG TABLET (KEPPRA) PO SCH ×2 (08:00→20:17)
[2022-11-15] MEDS: SERTRALINE 100 MG TAB PO SCH (14:12)
[2022-11-15 16:15] VITALS: BP 127/66
[2022-11-16 06:32] VITALS: BP 142/79
[2022-11-16] MEDS: BACTRIM 160MG/800MG DS TAB PO SCH (08:16)
[2022-11-16] MEDS: APIXABAN 5 MG TAB (ELIQUIS) PO SCH ×2 (08:16→20:31)
[2022-11-16] MEDS: levETIRAcetam 250MG TABLET (KEPPRA) PO SCH ×2 (08:17→20:32)
[2022-11-16] MEDS: ARIPiprazole 2 MG TAB PO SCH (08:17)
[2022-11-16] MEDS ORDERED: CLON0.25 PO (12:42)
[2022-11-16] MEDS ORDERED: ABIL1TAB13 PO (12:42)
[2022-11-16] MEDS: SERTRALINE 100 MG TAB PO SCH (13:30)
[2022-11-16 16:24] VITALS: BP 116/68
[2022-11-17 06:27] VITALS: BP 123/79
[2022-11-17] MEDS: levETIRAcetam 250MG TABLET (KEPPRA) PO SCH (08:10)
[2022-11-17] MEDS: APIXABAN 5 MG TAB (ELIQUIS) PO SCH (08:10)
[2022-11-17] MEDS: ARIPiprazole 2 MG TAB PO SCH (08:11)
[2022-11-17] MEDS ORDERED: LORazepam 0.5 MG TAB PO STA (09:22)
== END 2022-11-17 13:05 | disposition home or self-care (01) | DRG 753 ==
LOC: M ED 08:02 → M ED INP 11-11 15:32 → M PSY 11-11 18:22
PROVIDERS: ADMIT Psychiatry & Neurology Psychiatry; ATTEND Psychiatry & Neurology Psychiatry
DX: F32.89 Other specified depressive episodes (principal); C71.9 Malignant neoplasm of brain, unspecified; R45.851 Suicidal ideations; Z92.3 Personal history of irradiation; F41.1 Generalized anxiety disorder; Z88.8 Allergy status to other drugs, medicaments and biological substances; Z79.899 Other long term (current) drug therapy; K21.9 Gastro-esophageal reflux disease without esophagitis; Z86.711 Personal history of pulmonary embolism

== ENCOUNTER → 2022-11-28 | Outpatient (REF) | payer OTHER ==
[~2022-11-28] MED LIST changes: +ABIL1TAB13 PO; +CLON0.12 SL; +CLON0.25 PO
[2022-11-28 19:03] LABS: BASO # 0.1 10^3/uL (0.0-0.2); BASO % 0.9 % (0.0-1.0); EOS % 0.3 % (0.0-3.0); HEMATOCRIT 41.3 % (36.0-47.0); HEMOGLOBIN 13.1 g/dl (12.0-15.5); LYMPH # 1.1 10^3/uL (1.5-5.0); LYMPH % 10.2 % (24.0-44.0); MEAN CORPUSCULAR HGB CONC 31.7 g/dl (32.0-36.5); MEAN CORPUSCULAR VOLUME 94.5 fl (80.0-96.0); MONO # 0.9 10^3/uL (0.0-0.8); MONO % 8.6 % (2.0-8.0); NEUTROPHILS # 8.1 10^3/uL (1.5-8.5); NEUTROPHILS % 74.2 % (36.0-66.0); PLATELET COUNT, AUTOMATED 213 10^3/uL (150-450); RED BLOOD COUNT 4.37 10^6/uL (4.00-5.40)
[2022-11-28 19:28] LABS: ALBUMIN 3.1 G/DL (3.2-5.2); ALKALINE PHOSPHATASE 77 U/L (46-116); ALT/SGPT 96 U/L (7.0-40); AST/SGOT 43 U/L (<34); BILIRUBIN,TOTAL 0.3 MG/DL (0.3-1.2); BLOOD UREA NITROGEN 16 MG/DL (9-23); CALCIUM LEVEL 8.1 MG/DL (8.5-10.1); CARBON DIOXIDE LEVEL 26 MMOL/L (20-31); CHLORIDE LEVEL 105 MMOL/L (98-107); CREATININE FOR GFR 0.53 MG/DL (0.55-1.30); GLOMERULAR FILTRATION RATE > 60.0 (>51); GLUCOSE, FASTING 112 MG/DL (60-100); POTASSIUM SERUM 3.9 MMOL/L (3.5-5.1); SODIUM LEVEL 139 MMOL/L (136-145); TOTAL PROTEIN 6.2 G/DL (5.7-8.2)
== END ==
LOC: M LABDRAWC 16:44
PROVIDERS: ATTEND Internal Medicine Hospice and Palliative Medicine
DX: C71.9 Malignant neoplasm of brain, unspecified (principal)

== ENCOUNTER → 2023-01-12 | Outpatient (REF) | payer OTHER ==
[2023-01-12 17:31] LABS: BASO % 0.5 % (0.0-1.0); EOS # 0.1 10^3/uL (0.0-0.5); EOS % 0.8 % (0.0-3.0); HEMATOCRIT 39.7 % (36.0-47.0); HEMOGLOBIN 13.1 g/dl (12.0-15.5); LYMPH # 1.1 10^3/uL (1.5-5.0); LYMPH % 17.7 % (24.0-44.0); MEAN CORPUSCULAR HEMOGLOBIN 29.8 pg (27.0-33.0); MEAN CORPUSCULAR VOLUME 90.2 fl (80.0-96.0); MONO # 0.8 10^3/uL (0.0-0.8); MONO % 12.5 % (2.0-8.0); NEUTROPHILS # 4.3 10^3/uL (1.5-8.5); PLATELET COUNT, AUTOMATED 177 10^3/uL (150-450); WHITE BLOOD COUNT 6.3 10^3/uL (4.0-10.0)
[2023-01-12 17:56] LABS: ALBUMIN 3.5 G/DL (3.2-5.2); ALKALINE PHOSPHATASE 83 U/L (46-116); ALT/SGPT 36 U/L (7.0-40); AST/SGOT 30 U/L (<34); BILIRUBIN,TOTAL 0.4 MG/DL (0.3-1.2); BLOOD UREA NITROGEN 8 MG/DL (9-23); CALCIUM LEVEL 8.7 MG/DL (8.5-10.1); CARBON DIOXIDE LEVEL 26 MMOL/L (20-31); CHLORIDE LEVEL 106 MMOL/L (98-107); CREATININE FOR GFR 0.83 MG/DL (0.55-1.30); GLOMERULAR FILTRATION RATE > 60.0 (>51); GLUCOSE, FASTING 86 MG/DL (60-100); POTASSIUM SERUM 4.2 MMOL/L (3.5-5.1); SODIUM LEVEL 139 MMOL/L (136-145); TOTAL PROTEIN 6.4 G/DL (5.7-8.2)
== END ==
LOC: M LABDRAWC 16:50
PROVIDERS: ATTEND Internal Medicine Hospice and Palliative Medicine
DX: C71.9 Malignant neoplasm of brain, unspecified (principal)

== ENCOUNTER 2023-02-13 17:23 | Emergency (ER) | payer BC, OTHER ==
[~2023-02-13] VITALS: Ht 167.6 cm; Wt 89.7 kg
[~2023-02-13 17:23] MED LIST changes: -DEXA2TA PO; -PROC10TA5; -TAGR80TA PO
[2023-02-13] MEDS ORDERED: TAGR80TA PO (17:44)
[2023-02-13] MEDS ORDERED: PROC10TA5 (17:44)
[2023-02-13] MEDS ORDERED: PROHANCE 279.3MG/ML 15ML VIAL As Ordered ONE (20:35)
[2023-02-13] MEDS ORDERED: PROHANCE 279.3MG/ML 5ML VIAL As Ordered ONE (20:35)
[2023-02-13] MEDS ORDERED: PROCHLORPERAZINE 10MG 2ML VIAL IV ONE (21:35)
[2023-02-13] MEDS ORDERED: DEXA2TA PO (23:14)
[2023-02-13 23:26] VITALS: BP 110/61; TEMP 97.2; O2SAT 97
== END 2023-02-13 23:33 | disposition home or self-care (01) ==
LOC: M ED 17:23
DX: C71.9 Malignant neoplasm of brain, unspecified (principal); D69.6 Thrombocytopenia, unspecified; G40.909 Epilepsy, unspecified, not intractable, without status epilepticus; Z92.21 Personal history of antineoplastic chemotherapy; Z79.01 Long term (current) use of anticoagulants; Z88.6 Allergy status to analgesic agent; Z79.899 Other long term (current) drug therapy; Z79.811 Long term (current) use of aromatase inhibitors
CPT/HCPCS: 70450; 70553; 96374; 99284; A9576; J0780

== ENCOUNTER → 2023-02-13 | Outpatient (REF) | payer OTHER ==
[~2023-02-13] MED LIST changes: +DEXA2TA PO; +PROC10TA5; +TAGR80TA PO
[2023-02-13 18:40] LABS: BASO % 0.5 % (0.0-1.0); EOS # 0.1 10^3/uL (0.0-0.5); EOS % 2.3 % (0.0-3.0); HEMATOCRIT 39.9 % (36.0-47.0); HEMOGLOBIN 13.4 g/dl (12.0-15.5); LYMPH % 24.5 % (24.0-44.0); MEAN CORPUSCULAR HEMOGLOBIN 30.2 pg (27.0-33.0); MEAN CORPUSCULAR HGB CONC 33.6 g/dl (32.0-36.5); MEAN CORPUSCULAR VOLUME 89.9 fl (80.0-96.0); MONO # 0.5 10^3/uL (0.0-0.8); MONO % 12.9 % (2.0-8.0); NEUTROPHILS # 2.3 10^3/uL (1.5-8.5); NEUTROPHILS % 59.5 % (36.0-66.0); PLATELET COUNT, AUTOMATED 129 10^3/uL (150-450); RED BLOOD COUNT 4.44 10^6/uL (4.00-5.40); WHITE BLOOD COUNT 3.9 10^3/uL (4.0-10.0)
[2023-02-13 18:46] LABS: ALBUMIN 3.5 G/DL (3.2-5.2); ALKALINE PHOSPHATASE 64 U/L (46-116); ALT/SGPT 11 U/L (7.0-40); AST/SGOT 14 U/L (<34); BILIRUBIN,TOTAL 0.4 MG/DL (0.3-1.2); BLOOD UREA NITROGEN 8 MG/DL (9-23); CALCIUM LEVEL 8.5 MG/DL (8.5-10.1); CARBON DIOXIDE LEVEL 24 MMOL/L (20-31); CHLORIDE LEVEL 105 MMOL/L (98-107); CREATININE FOR GFR 0.78 MG/DL (0.55-1.30); GLOMERULAR FILTRATION RATE > 60.0 (>51); GLUCOSE, FASTING 82 MG/DL (60-100); POTASSIUM SERUM 3.9 MMOL/L (3.5-5.1); SODIUM LEVEL 137 MMOL/L (136-145); TOTAL PROTEIN 6.3 G/DL (5.7-8.2)
== END ==
LOC: M LABDRAWC 16:47
PROVIDERS: ATTEND Internal Medicine Hospice and Palliative Medicine
DX: C71.9 Malignant neoplasm of brain, unspecified (principal)

== ENCOUNTER 2023-03-28 08:37 | Emergency (ER) | payer BC, OTHER ==
[~2023-03-28] VITALS: Ht 167.6 cm; Wt 93.2 kg
[~2023-03-28 08:37] MED LIST changes: +DEXA2TA PO; +PROC10TA5; +TAGR80TA PO
[2023-03-28 08:38] VITALS: BP 132/75; TEMP 95.9; O2SAT 97
== END 2023-03-28 10:18 | disposition home or self-care (01) ==
LOC: M ED 08:37
DX: Z48.02 Encounter for removal of sutures (principal); Z88.8 Allergy status to other drugs, medicaments and biological substances

== ENCOUNTER 2023-05-03 10:34 | Emergency (ER) | payer BC, OTHER ==
[~2023-05-03] VITALS: Ht 167.6 cm; Wt 92.3 kg
[2023-05-03 13:16] VITALS: BP 116/66; TEMP 97.5; O2SAT 97
== END 2023-05-03 13:17 | disposition home or self-care (01) ==
LOC: M ED 10:34
DX: S40.022A Contusion of left upper arm, initial encounter (principal); X58.XXXA Exposure to other specified factors, initial encounter; Y92.009 Unspecified place in unspecified non-institutional (private) residence as the place of occurrence of the external cause; R93.7 Abnormal findings on diagnostic imaging of other parts of musculoskeletal system; Z98.890 Other specified postprocedural states; Z86.2 Personal history of diseases of the blood and blood-forming organs and certain disorders involving the immune mechanism; Z87.891 Personal history of nicotine dependence; Z79.01 Long term (current) use of anticoagulants; Z79.899 Other long term (current) drug therapy; Z88.8 Allergy status to other drugs, medicaments and biological substances

== ENCOUNTER 2023-08-24 07:47 | Observation (INO) | payer BC, OTHER ==
[2023-08-24 08:00] VITALS: TEMP 97.2
[2023-08-24] MEDS ORDERED: DEXA4TA PO (08:18)
[2023-08-24] MEDS ORDERED: LEVE500T5 PO (08:18)
[2023-08-24] MEDS ORDERED: CLOB20TA13 PO (08:18)
[2023-08-24] MEDS ORDERED: LORazepam 2 MG/ML 1ML VIAL IV STA ×2 (08:21→13:14)
[2023-08-24] MEDS ORDERED: LORA1TAB23 PO (08:21)
[2023-08-24] MEDS ORDERED: dexAMETHasone 20MG/5ML VIAL IV ONE (08:25)
[2023-08-24 09:15] LABS: HEMATOCRIT 34.3 % (36.0-47.0); HEMOGLOBIN 10.3 g/dl (12.0-15.5); MEAN CORPUSCULAR HEMOGLOBIN 25.4 pg (27.0-33.0); MEAN CORPUSCULAR VOLUME 84.5 fl (80.0-96.0); PLATELET COUNT, AUTOMATED 192 10^3/uL (150-450); RED BLOOD COUNT 4.06 10^6/uL (4.00-5.40); WHITE BLOOD COUNT 7.9 10^3/uL (4.0-10.0)
[2023-08-24 09:34] LABS: BLOOD UREA NITROGEN 18 MG/DL (9-23); CALCIUM LEVEL 8.4 MG/DL (8.5-10.1); CARBON DIOXIDE LEVEL 28 MMOL/L (20-31); CHLORIDE LEVEL 103 MMOL/L (98-107); CREATININE FOR GFR 0.47 MG/DL (0.55-1.30); GLOMERULAR FILTRATION RATE > 60.0 (>51); GLUCOSE, FASTING 80 MG/DL (60-100); POTASSIUM SERUM 3.8 MMOL/L (3.5-5.1); SODIUM LEVEL 139 MMOL/L (136-145)
[2023-08-24 10:06] LABS: EOSINOPHILS 1 % (0-3); LYMPHOCYTES 13 % (16-44); METAMYELOCYTES 4 % (0-0); MONOCYTES 10 % (0-5); MYELOCYTES 3 % (0-0); NEUTROPHILS 67 % (28-66)
[2023-08-24 10:07] LABS: HYPOCHROMASIA 1+; PLATELET ESTIMATE NORMAL (NORMAL); POLYCHROMASIA 1+
[2023-08-24] MEDS ORDERED: MORP1SOL5 PO (10:49)
[2023-08-24] MEDS ORDERED: OLANZapine ORAL DISINTEGRATING TAB 5MG PO ONE (10:50)
[2023-08-24] MEDS ORDERED: LORazepam 2 MG TAB PO ONE (10:50)
[2023-08-24] MEDS ORDERED: HALOPERIDOL 5MG/ML 1ML VIAL IM STA (13:41)
[2023-08-24] MEDS ORDERED: ATROPINE SULFATE 1% OPHTH SOLN 2ML BTL SL PRN (13:45)
[2023-08-24] MEDS ORDERED: ACETAMINOPHEN 650MG SUPP PR PRN (13:45)
[2023-08-24] MEDS ORDERED: ACETAMINOPHEN TAB 650MG DOSE (2X325MG) PO PRN (13:45)
[2023-08-24] MEDS ORDERED: BISACODYL 10MG SUPP PR PRN (13:45)
[2023-08-24] MEDS ORDERED: HYOSCYAMINE SULFATE 0.125 MG SUBL TABLET PO PRN (13:45)
[2023-08-24] MEDS ORDERED: ONDANSETRON 4MG 2ML VIAL IV PRN (13:45)
[2023-08-24] MEDS ORDERED: MORPHINE 2 MG/ML 1ML VIAL IV PRN (13:45)
[2023-08-24] MEDS ORDERED: ONDANSETRON 4MG ORAL DISINTEGRATING TAB PO PRN (13:45)
[2023-08-24] MEDS ORDERED: FLEET ENEMA PR PRN (13:45)
[2023-08-24] MEDS ORDERED: SCOPOLAMINE 1MG TRANSDERMAL PATCH TOP PRN (13:45)
[2023-08-24] MEDS ORDERED: MED REC IN PROGRESS XX SCH (14:25)
[2023-08-24] MEDS ORDERED: ATIV1TAB10 SL (15:03)
[2023-08-24] MEDS ORDERED: HYOS125TA SL (15:03)
[2023-08-24] MEDS ORDERED: ZOLO25TA PO (15:03)
[2023-08-24] MEDS ORDERED: ARIP1TAB4 PO (15:03)
[2023-08-24] MEDS ORDERED: OXYC-517 PO (15:03)
[2023-08-24] MEDS ORDERED: ZOLP10TA2 PO (15:06)
[2023-08-24] MEDS ORDERED: HOME MED LIST COMPLETE! XX SCH (15:10)
[2023-08-24] MEDS ORDERED: OLANZapine INTRAMUSCULAR 10MG VIAL IM ONE (15:45)
[2023-08-24 16:00] VITALS: BP 144/69; O2SAT 97
[2023-08-24] MEDS ORDERED: CALCIUM CARBONATE 500 MG CHEW U/D PO PRN (18:40)
[2023-08-24] MEDS: LORazepam 1 MG TAB PO PRN (18:45)
[2023-08-24] MEDS: levETIRAcetam 250MG TABLET (KEPPRA) PO SCH (19:41)
[2023-08-24] MEDS: LORazepam 2 MG/ML 1ML VIAL IV PRN (19:42)
[2023-08-24] MEDS: MORPHINE 10MG/0.5ML ORAL CONCENTRATE SOLUTION U/D SL PRN (19:42)
[2023-08-25] MEDS: levETIRAcetam 250MG TABLET (KEPPRA) PO SCH ×2 (08:18→21:29)
[2023-08-25] MEDS: SERTRALINE HCL 50 MG TAB PO SCH (08:19)
[2023-08-25] MEDS: LORazepam 1 MG TAB PO PRN ×3 (08:19→21:29)
[2023-08-25] MEDS: ARIPiprazole 2 MG TAB PO SCH (08:37)
[2023-08-25] MEDS: LORazepam 2 MG/ML 1ML VIAL IV PRN (09:25)
[2023-08-25] MEDS ORDERED: OLANZapine INTRAMUSCULAR 10MG VIAL IM PRN (11:00)
[2023-08-25] MEDS ORDERED: diazePAM 10MG/2ML SYRINGE IV PRN (11:00)
[2023-08-26] MEDS: LORazepam 1 MG TAB PO PRN ×2 (06:20→21:08)
[2023-08-26] MEDS: ARIPiprazole 2 MG TAB PO SCH (09:57)
[2023-08-26] MEDS: SERTRALINE HCL 50 MG TAB PO SCH (09:57)
[2023-08-26] MEDS: levETIRAcetam 250MG TABLET (KEPPRA) PO SCH ×2 (09:57→21:08)
[2023-08-27] MEDS: MORPHINE 10MG/0.5ML ORAL CONCENTRATE SOLUTION U/D SL PRN (02:40)
[2023-08-27] MEDS: ARIPiprazole 2 MG TAB PO SCH (13:27)
[2023-08-27] MEDS: SERTRALINE HCL 50 MG TAB PO SCH (13:28)
[2023-08-27] MEDS: levETIRAcetam 250MG TABLET (KEPPRA) PO SCH ×2 (13:28→20:41)
[2023-08-27] MEDS: LORazepam 1 MG TAB PO PRN (20:42)
[2023-08-28] MEDS: LORazepam 1 MG TAB PO PRN (01:39)
[2023-08-28] MEDS: MORPHINE 10MG/0.5ML ORAL CONCENTRATE SOLUTION U/D SL PRN ×2 (05:39→21:00)
[2023-08-28] MEDS: ARIPiprazole 2 MG TAB PO SCH (09:51)
[2023-08-28] MEDS: levETIRAcetam 250MG TABLET (KEPPRA) PO SCH ×2 (09:51→20:52)
[2023-08-28] MEDS: SERTRALINE HCL 50 MG TAB PO SCH (09:51)
[2023-08-29] MEDS: MORPHINE 10MG/0.5ML ORAL CONCENTRATE SOLUTION U/D SL PRN (01:51)
[2023-08-29] MEDS ORDERED: HALO10TA20 PO (10:55)
[2023-08-29] MEDS ORDERED: FLEEENE12 PR (10:55)
[2023-08-29] MEDS ORDERED: ONDA4TAB6 PO (10:55)
[2023-08-29] MEDS: levETIRAcetam 250MG TABLET (KEPPRA) PO SCH (11:02)
[2023-08-29] MEDS: SERTRALINE HCL 50 MG TAB PO SCH (11:02)
[2023-08-29] MEDS: ARIPiprazole 2 MG TAB PO SCH (11:02)
[2023-08-29 15:08] LABS: CLOBAZAM 275 ng/mL (30-300); DESMETHYLCLOBAZAM 1359 ng/mL (300-3000); LEVETIRACETAM (KEPPRA) 12.8 ug/mL (10.0-40.0)
== END 2023-08-29 14:05 | disposition hospice, home (50) ==
LOC: M ED 07:47 → EDBD 07:47 → M ED INP 07:48 → ENRESERV 14:49 → M MSPAV 16:15
PROVIDERS: ADMIT Internal Medicine; ATTEND Student in an Organized Health Care Education/Training Program
DX: G93.41 Metabolic encephalopathy (principal); Z79.52 Long term (current) use of systemic steroids; C71.9 Malignant neoplasm of brain, unspecified; Z92.21 Personal history of antineoplastic chemotherapy; Z92.3 Personal history of irradiation; Z79.899 Other long term (current) drug therapy; Z88.8 Allergy status to other drugs, medicaments and biological substances
CPT/HCPCS: 70450; 71045; 80048; 80180; 85025; 87635; 93005; 93041; 94760; 96372; 96374; 96375; 96376; 99285; G0480; J1100; J1630; J2060; J3360; S0166